=== PATIENT | male | born 1950 | race Caucasian/White ===

== ENCOUNTER 2020-10-29 16:38 | Inpatient (IN) | payer MEDICARE ==
[~2020-10-29] VITALS: Ht 180.3 cm; Wt 95.6 kg
--- NOTE | 2020-10-29 17:07 | NUR ---
PT [facility] [phone]
[2020-10-29] MEDS ORDERED: MORPHINE SULFATE 4 MG/ML, 1ML ONE (17:33)
[2020-10-29] MEDS ORDERED: ONDANSETRON 2MG/ML, 2ML ONE ×3 (17:33→23:57)
--- NOTE | 2020-10-29 17:40 | NUR ---
Samson loyola RN pt medicated per order. Pt had negative covid results on record from sending facility.
[2020-10-29] MEDS ORDERED: MORPHINE SULFATE 4 MG/ML, 1ML IVPush PRN (18:00)
[2020-10-29] MEDS ORDERED: ONDANSETRON 2MG/ML, 2ML IVPush ONE (18:00)
--- NOTE | 2020-10-29 18:00 | NUR ---
PT RESTING IN BED, PT A/O X4 WITH EQUAL AND UNLABORED BREATHS.. PT AWARE OF ED CARE PLAN. PT DENIED ANY CURRENT WANTS OR NEEDS.
[2020-10-29] MEDS ORDERED: MELATONIN 5 MG TABLET PO PRN (18:30)
[2020-10-29] MEDS ORDERED: morphine SULFATE 10 MG/ML, 1ML IVPush PRN (18:30)
[2020-10-29] MEDS ORDERED: SODIUM CHLORIDE FLUSH 10ML SYR IVF ONE (18:30)
[2020-10-29] MEDS ORDERED: ACETAMINOPHEN 325 MG TABLET PO PRN (18:30)
--- NOTE | 2020-10-29 19:39 | NUR ---
PT RESTING IN BED, PT A/O X4 WITH EQUAL AND UNLABORED BREATHS.. PT AWARE OF ED CARE PLAN. PT DENIED ANY CURRENT WANTS OR NEEDS.
[2020-10-29 19:48] LABS: INTERNATIONAL NORMALIZED RATIO 0.96 (0.93-1.1); PROTHROMBIN TIME 10.3 Seconds (9.6-11.5)
--- NOTE | 2020-10-29 21:37 | NUR ---
PT TRANPORTED TO OR VIA OR TECH, PT A/O X4.
[2020-10-29] MEDS ORDERED: MIDAZOLAM 1 MG/ML, 2ML ONE (21:52)
[2020-10-29] MEDS ORDERED: FENTANYL PF 250 MCG/5ML ONE (21:52)
[2020-10-29] MEDS ORDERED: BUPIVACAINE/PF 0.5% ONE (22:39)
[2020-10-29] MEDS ORDERED: EPINEPHRINE 1 MG/ML, 1ML ONE (22:39)
[2020-10-29] MEDS ORDERED: TRANEXAMIC ACID 100 MG/ML, 10ML ONE (22:51)
[2020-10-30] MEDS ORDERED: DIAZEPAM 5 MG/ML, 2ML ONE (00:26)
[2020-10-30] MEDS ORDERED: ONDANSETRON 2MG/ML, 2ML IVPush PRN (00:30)
[2020-10-30] MEDS ORDERED: DIPHENHYDRAMINE 50 MG/ML, 1ML IVPush PRN ×2 (00:30)
[2020-10-30] MEDS ORDERED: PROMETHAZINE 12.5 MG SUPP PR PRN (00:30)
[2020-10-30] MEDS ORDERED: ACETAMINOPHEN 325 MG TABLET PO PRN (00:30)
[2020-10-30] MEDS ORDERED: HYDROmorphone 1 MG/ML, 1ML INJ IVPush PRN (00:30)
[2020-10-30] MEDS ORDERED: FENTANYL PF 100 MCG/2ML IV PRN (00:30)
[2020-10-30] MEDS ORDERED: MIDAZOLAM 1 MG/ML, 2ML IV PRN (00:30)
[2020-10-30] MEDS ORDERED: OXYcodone 5 MG/5 ML ORAL.SOL UDC PO PRN (00:30)
[2020-10-30] MEDS ORDERED: DIAZEPAM 5 MG/ML, 2ML IVPush PRN (00:30)
[2020-10-30] MEDS ORDERED: PROMETHAZINE 25 MG/ML, 1ML IVPush PRN (00:30)
[2020-10-30] MEDS ORDERED: ALBUTEROL SULFATE 2.5 MG/3 ML NPPB PRN (00:30)
[2020-10-30] MEDS ORDERED: LABETALOL 5MG/ML, 20ML IV PRN (00:30)
[2020-10-30] MEDS ORDERED: EPHEDRINE 50 MG/ML, 1ML IVPush PRN (00:30)
[2020-10-30] MEDS ORDERED: hydrALAzine 20 MG/ML, 1ML IV PRN (00:30)
[2020-10-30] MEDS ORDERED: MEPERIDINE/PF 25MG/0.5ML IVPush PRN (00:30)
[2020-10-30] MEDS ORDERED: FENTANYL PF 100 MCG/2ML ONE (00:44)
[2020-10-30] MEDS ORDERED: OXYcodone 5 MG/5 ML ORAL.SOL UDC ONE (00:44)
[2020-10-30 01:30] VITALS: BP 141/81
[2020-10-30] MEDS: INSULIN LISPRO 100 UNITS/ML, PEN SQ-INSULIN SCH ×5 (02:19→20:39)
[2020-10-30 05:45] LABS: BASOPHILS % (AUTO) 0 % (0-1); EOSINOPHILS % (AUTO) 0 % (1-7); LYMPHOCYTES % (AUTO) 5 % (22-44); MEAN CORPUSCULAR HEMOGLOBIN 31.1 pg (27.5-34.5); MEAN CORPUSCULAR HGB CONC 33.9 g/dL (33.2-36.2); MEAN PLATELET VOLUME 9.7 fL (7.4-10.4); MONOCYTES % (AUTO) 3 % (2-9); NEUTROPHILS % (AUTO) 92 % (42-75); PLATELET COUNT 160 x10^3/uL (130-400); RED BLOOD COUNT 4.62 x10^6/uL (4.38-5.82); RED CELL DISTRIBUTION WIDTH 13.6 % (9.4-14.8)
[2020-10-30 05:46] LABS: ANION GAP 9 mmol/L (5-15); CALCIUM 8.8 mg/dL (8.5-10.1); CHLORIDE 104 mmol/L (98-107)
[2020-10-30 05:48] LABS: CREATININE 1.53 mg/dL (0.7-1.3)
[2020-10-30] MEDS: CEFAZOLIN PMX 2GM/50ML 50 ML IVPB SCH ×2 (06:11→16:59)
[2020-10-30 07:38] VITALS: BP 129/81
[2020-10-30 07:40] VITALS: BP_SYST 129; BP_SYST 148; BP_DIAS 69; BP_DIAS 81
[2020-10-30] MEDS ORDERED: HYDROcodone/APAP 5/325 TABLET ONE (09:00)
[2020-10-30] MEDS ORDERED: ONDANSETRON ODT 4 MG PO PRN (09:00)
[2020-10-30] MEDS: HYDROcodone/APAP 5/325 TABLET PO PRN ×2 (09:02→16:58)
[2020-10-30] MEDS: ACETAMINOPHEN 325 MG TABLET PO SCH ×3 (11:56→20:29)
[2020-10-30] MEDS: SODIUM CHLORIDE FLUSH 10ML SYR IVF SCH ×2 (11:57→20:28)
[2020-10-30 13:03] VITALS: BP 92/60
[2020-10-30 19:27] VITALS: BP 115/68
[2020-10-30] MEDS: HEPARIN 5,000 UNITS/ML, 1ML SQ SCH (19:35)
[2020-10-31 02:51] VITALS: BP 105/68
[2020-10-31] MEDS: ACETAMINOPHEN 325 MG TABLET PO SCH ×5 (03:00→20:42)
[2020-10-31] MEDS: HEPARIN 5,000 UNITS/ML, 1ML SQ SCH ×3 (03:09→20:41)
[2020-10-31] MEDS: ONDANSETRON 2MG/ML, 2ML IVPush PRN ×2 (05:14→20:41)
[2020-10-31 06:08] LABS: BASOPHILS % (AUTO) 0 % (0-1); EOSINOPHILS % (AUTO) 1 % (1-7); LYMPHOCYTES % (AUTO) 11 % (22-44); MEAN CORPUSCULAR HEMOGLOBIN 31.3 pg (27.5-34.5); MEAN CORPUSCULAR HGB CONC 34.4 g/dL (33.2-36.2); MEAN PLATELET VOLUME 9.7 fL (7.4-10.4); MONOCYTES % (AUTO) 7 % (2-9); NEUTROPHILS % (AUTO) 81 % (42-75); PLATELET COUNT 132 x10^3/uL (130-400); RED BLOOD COUNT 4.05 x10^6/uL (4.38-5.82); RED CELL DISTRIBUTION WIDTH 13.5 % (9.4-14.8)
[2020-10-31 06:18] LABS: CHLORIDE 100 mmol/L (98-107)
[2020-10-31 06:26] LABS: ANION GAP 7 mmol/L (5-15); CALCIUM 8.8 mg/dL (8.5-10.1); CREATININE 1.59 mg/dL (0.7-1.3)
[2020-10-31] MEDS: SODIUM CHLORIDE 0.9% 1,000 ML IV SCH ×2 (06:37→15:05)
[2020-10-31] MEDS: SODIUM CHLORIDE FLUSH 10ML SYR IVF SCH ×2 (08:00→20:42)
[2020-10-31] MEDS: INSULIN LISPRO 100 UNITS/ML, PEN SQ-INSULIN SCH ×4 (08:00→20:42)
[2020-10-31 08:07] VITALS: BP 131/77
[2020-10-31 15:06] VITALS: BP 136/83
[2020-10-31 19:25] VITALS: BP 133/79
[2020-11-01 01:17] VITALS: BP 136/76
[2020-11-01] MEDS: ACETAMINOPHEN 325 MG TABLET PO SCH ×4 (03:09→20:55)
[2020-11-01] MEDS: HEPARIN 5,000 UNITS/ML, 1ML SQ SCH ×3 (05:49→20:55)
[2020-11-01] MEDS: SODIUM CHLORIDE 0.9% 1,000 ML IV SCH (05:49)
[2020-11-01 07:33] VITALS: BP 152/83
[2020-11-01] MEDS: DOCUSATE 100 MG CAPSULE PO PRN ×2 (08:03→20:56)
[2020-11-01] MEDS: INSULIN LISPRO 100 UNITS/ML, PEN SQ-INSULIN SCH ×4 (08:03→20:55)
[2020-11-01] MEDS: SODIUM CHLORIDE FLUSH 10ML SYR IVF SCH ×2 (08:10→20:56)
[2020-11-01 13:19] VITALS: BP 143/79
[2020-11-01 19:49] VITALS: BP 136/81
[2020-11-02 02:00] VITALS: BP 132/83
[2020-11-02] MEDS: ACETAMINOPHEN 325 MG TABLET PO SCH ×3 (03:18→15:58)
[2020-11-02] MEDS: HEPARIN 5,000 UNITS/ML, 1ML SQ SCH ×2 (05:04→12:28)
[2020-11-02 06:28] LABS: BASOPHILS % (AUTO) 1 % (0-1); EOSINOPHILS % (AUTO) 4 % (1-7); LYMPHOCYTES % (AUTO) 20 % (22-44); MEAN CORPUSCULAR HEMOGLOBIN 31.6 pg (27.5-34.5); MEAN CORPUSCULAR HGB CONC 34.6 g/dL (33.2-36.2); MEAN PLATELET VOLUME 9.3 fL (7.4-10.4); MONOCYTES % (AUTO) 8 % (2-9); NEUTROPHILS % (AUTO) 67 % (42-75); PLATELET COUNT 150 x10^3/uL (130-400); RED BLOOD COUNT 3.95 x10^6/uL (4.38-5.82); RED CELL DISTRIBUTION WIDTH 13.3 % (9.4-14.8)
[2020-11-02 06:31] LABS: ANION GAP 7 mmol/L (5-15); CALCIUM 8.4 mg/dL (8.5-10.1); CHLORIDE 102 mmol/L (98-107)
[2020-11-02 06:33] LABS: CREATININE 1.19 mg/dL (0.7-1.3)
[2020-11-02] MEDS: INSULIN LISPRO 100 UNITS/ML, PEN SQ-INSULIN SCH ×3 (08:15→16:03)
[2020-11-02] MEDS: SODIUM CHLORIDE FLUSH 10ML SYR IVF SCH (08:19)
[2020-11-02 08:20] VITALS: BP 164/81
[2020-11-02] MEDS: ONDANSETRON 2MG/ML, 2ML IVPush PRN (11:10)
[2020-11-02] MEDS ORDERED: POLYETHYLENE GLYCOL 17 GM PACKET PO ONE (12:00)
[2020-11-02] MEDS ORDERED: BISACODYL 10 MG SUPP PR SCH (12:00)
[2020-11-02] MEDS ORDERED: DOCU-181 PO (12:01)
[2020-11-02] MEDS ORDERED: TRAM50TA2 PO (12:01)
[2020-11-02] MEDS ORDERED: ASPI81TA45 PO (12:01)
[2020-11-02 12:49] VITALS: BP 168/85
[2020-11-02] MEDS ORDERED: PINK LADY ENEMA 490 ML BOTTLE PR ONE (15:00)
[2020-11-02 15:55] VITALS: BP 148/68
== END 2020-11-02 16:48 | DRG 522 ==
LOC: ED 17:21 → EDIP 18:17 → 4NE 10-30 01:41
PROVIDERS: ADMIT Internal Medicine; ATTEND Hospitalist
PROC: 0SRR0J9 Replacement of Right Hip Joint, Femoral Surface with Synthetic Substitute, Cemented, Open Approach (ICD-10-PCS; principal; 2020-10-29 23:00)
DX: S72.001A Fracture of unspecified part of neck of right femur, initial encounter for closed fracture (principal); J98.11 Atelectasis; W01.0XXA Fall on same level from slipping, tripping and stumbling without subsequent striking against object, initial encounter; G89.11 Acute pain due to trauma; E11.9 Type 2 diabetes mellitus without complications; Z20.822 Contact with and (suspected) exposure to COVID-19; Y93.89 Activity, other specified; Y92.89 Other specified places as the place of occurrence of the external cause; Y99.8 Other external cause status
CPT/HCPCS: 36415; 71045; 80048; 82962; 85025; 85610; 85730; 87635; 96374; 96375; 99285; C1713; G0378; J0171; J0690; J1644; J2250; J2405; J3010; J3360; Q0162; C1762; C1776; J1815; J2270; J7030